=== PATIENT | male | born 1950 ===

== ENCOUNTER → 2019-07-04 11:07 | Outpatient (ROUT) | payer OTHER, MEDICARE, MEDICAID, SELFPAY ==
[2019-07-04 11:42] LABS: Influenza A - CEPHEID Flu A NEGATIVE (NEGATIVE); Influenza B - CEPHEID Flu B NEGATIVE (NEGATIVE)
== END ==
PROVIDERS: Visit Provider Internal Medicine
DX: J10.1 Influenza due to other identified influenza virus with other respiratory manifestations (principal)
CPT/HCPCS: 87502

== ENCOUNTER → 2019-07-11 13:05 | Outpatient (ROUT) | payer MEDICARE, MEDICAID, SELFPAY ==
[2019-07-20 10:58] LABS: COVID19 Sendout Not Detected (Not Detected)
== END ==
PROVIDERS: Visit Provider Internal Medicine
DX: J18.9 Pneumonia, unspecified organism (principal)
CPT/HCPCS: 87635